=== PATIENT | male | born 1965 | race Caucasian/White ===

== ENCOUNTER 2024-04-16 16:32 | Inpatient (IN) ==
--- NOTE | 2024-04-16 17:11 | XRay Report ---
SINGLE VIEW CHEST CLINICAL HISTORY: Atypical chest pain. FINDINGS: A PA chest radiograph is obtained. No prior studies are available for comparison at the monae e of dictation. The heart is enlarged. There is pulmonary vascular congestion and mild interstitial e leslie. There are small pleural effusions. No pneumothorax is seen. The skeletal structures are osteope justina. The bony thorax is grossly intact. IMPRESSION: 1. Cardiomegaly with evidence of congestive failure and mild interstitial edema. Radiographic follow- up to resolution is recommended. 2. Small pleural effusions. ACT 112: Negative or not required by law. Electronically signed by: Ruddy Sharma M.D. 04/16/2024 5:10 PM
[2024-04-16 17:43] LABS: Basophils # (auto) 0.04 K/uL (0.00-0.20); Basophils % (auto) 0.4 %; Eosinophils # (auto) 0.21 K/uL (0.00-0.50); Eosinophils % (auto) 1.9 %; Hemoglobin 12.2 g/dl (14.0-18.0); Immature Granulocytes # (auto) 0.05 K/uL (0.01-0.20); Immature Granulocytes % (auto) 0.5 %; Lymphocytes # (auto) 1.51 K/uL (1.20-3.40); Mean Corpuscular Volume 85.1 fL (80.0-100.0); Mean Platelet Volume 9.9 fL (9.4-12.4); Monocytes # (auto) 0.64 K/uL (0.11-0.59); Monocytes % (auto) 5.9 %; Neutrophils # (auto) 8.35 K/uL (1.40-6.50); Neutrophils % (auto) 77.3 %; Platelet Count 342 K/uL (130-400); RDW Coefficient of Variation 14.3 % (11.5-14.5); RDW Standard Deviation 44.7 fL (36.4-46.3); Red Blood Count 4.35 M/uL (4.70-6.10)
[2024-04-16 18:00] LABS: Albumin Level 3.5 gm/dl (3.4-5.0); BUN Creatinine Ratio 23.5 (10-20); Bilirubin,Total 0.9 mg/dl (0.2-1.0); Calcium 9.1 mg/dl (8.6-10.3); Creatinine Clr Calc Pharmacy 125.6 ml/min; Est GFR (African American) 111.3 ml/min; Globulin 3.6 gm/dl (2.5-4.0); Potassium 4.2 mmol/L (3.5-5.1); Total Protein 7.1 gm/dl (6.0-8.3)
[2024-04-16 18:05] LABS: Troponin I High Sensitivity 5.9 pg/ml (0-20)
[2024-04-16 18:10] LABS: INR 1.2 (0.9-1.1); Partial Thromboplastin Ratio 1.1; Partial Thromboplastin Time 29 Seconds (21-31); Prothrombin Time 12.7 Seconds (9.0-12.0)
[2024-04-16 18:16] LABS: Influenza A virus by PCR Negative (Neg); Influenza B virus by PCR Negative (Neg); RSV by PCR Negative (Neg); SARS CoV2 RNA(COVID-19) Ceph NEGATIVE (Negative)
--- NOTE | 2024-04-16 18:41 | Emergency Department Note ---
Impression & Plan GROVE (dyspnea on exertion), Congestive heart failure, Dizziness, Acute Lyme disease ED Provider Note ED Provider Note NAME: MADISON CASTILLO AGE:58 SEX: Male : 1965 ARRIVES VIA: Private vehicle INFORMANT: Patient ED PROVIDER(s): Lashon Morgan DO CHIEF COMPLAINT: Referred from urgent care HPI: This is a 58-year-old male presents emergency department due to concern for increased dyspnea with exertion over the last 1-1/2 to 2 weeks. He states he is also noticed dizziness with exertion, and increased fatigue. Patient states no prior similar history. He denies any history of heart problems or lung problems. He denies any recent fevers, chills, or URI symptoms. He denies any coming chest pain or pressure. He states when his breathing gets worse with any movement or exertion he is to sit down for a while before it eventually returns to normal. He states he presented to urgent care today and had a chest x-ray performed and they told him he had congestive heart failure and that he needed to come to the emergency department. Patient states no prior cardiac evaluation. He states family members have had cardiac issues beginning in their 50s additionally. No recent travel. Patient states his mother recently the end of January. states he is also a diabetic however his diet has not been good since the passing of his mother. PAST MEDICAL HISTORY:See Below PAST SURGICAL HISTORY:See Below FAMILY HISTORY:See Below SOCIAL HISTORY:See Below HOME MEDICATIONS:See Below ALLERGIES:See Below VITALS:See Below PHYSICAL EXAMINATION: GENERAL: alert, well appearing, well nourished, no distress, non-toxic EYE EXAM: normal conjunctiva, PERRL and EOM's grossly intact OROPHARYNX: no exudate, no erythema, lips, buccal mucosa, and tongue normal and mucous membranes are moist NECK: supple, no nuchal rigidity, no adenopathy, non-tender LUNGS: Clear to auscultation. Normal chest wall mechanics, no w/r/r HEART: no murmurs, S1 normal and S2 normal ABDOMEN: abdomen soft, non-tender, normo-active bowel sounds, no masses, no rebound or guarding. BACK: Back is symmetrical on inspection and there is no deformity, no midline tenderness, no CVA tenderness. SKIN: no rashes, petechiae, orbruising UPPER EXTREMITIES: upper extremities are grossly normal. FROM, nml pulses b/l. LOWER EXTREMITIES: No pitting edema. FROM, nml pulses b/l. NEURO EXAM: Normal sensorium, cranial nerves II-XII grossly intact, normal speech, no facial droop,nogross weakness of arms, no gross weakness of legs. Gross sensation intact. No ataxia. Vital Signs: reviewed and remarkable Differential Diagnosis: pneumonia, bronchitis, COPD/Asthma exacerbation, pneumothorax, pulmonary embolism, congestive heart failure, acute coronary syndrome, as well as others were considered MEDICAL DECISION MAKING: This is a 50-year-old male presents emergency room due to concern for increased dyspnea with exertion over the last 2 weeks. Patient initially seen at urgent care and sent here for additional evaluation due to concern for abnormal chest x-ray and possible CHF. Patient with no prior cardiac history. He was afebrile vital signs stable. Labs drawn and sent, IV established, EKG and chest ray performed at bedside and interpreted by me and patient monitored on telemetry. Patient noted to have a negative troponin however an elevated BNP. Given his recent dyspnea on exertion, chest x-ray suggestive of evolving CHF, and elevated BNP, I discussed with him additional inpatient evaluation and management. He verbalized understanding. Patient given Lasix 20 mg IV in the emergency department to help again diuresis. He had no increased work of breathing or hypoxia while resting in bed. Case discussed with the hospitalist team for additional evaluation and management. After this discussion patient's Lyme test did result positive. Patient was given a gram of IV Rocephin as a precaution while awaiting additional IgG/IgM. It is unclear at this time if an acute Lyme infection could be contributing to his symptoms and CHF. Consultation(s): 1919: Discussed with Dr. Oakes, [facility] hospitalist team, for additional evaluation and management ER Treatment Provided: See below Diagnostics Interpreted By Me: -ECG: Normal sinus at 69, normal axis, normal intervals, no acute ST/T wave changes. -Cardiac Monitoring: An order was placed for continuous cardiac monitoring. The monitor shows a rate of 72 with normal sinus rhythm. -Laboratory studies: As stated above and show below. -Imaging studies: X-ray Chest: A single view study of the chest was reviewed and was negative for focal infiltrate, effusion, or wide mediastinum. Cardiomegaly noted, increased interstitial markings suggestive of pulmonary edema also noted. Triage Nursing Note Reviewed Prior/Outside Records Reviewed Past Med/Surg History Problem List (Updated 04/17/24 @ 20:29 by Lashon Morgan DO) Acute Lyme disease (Acute) Acute heart failure with preserved ejection fraction LVH (left ventricular hypertrophy) Hypertension Acute on chronic diastolic CHF (congestive heart failure) Dizziness (Acute) Congestive heart failure (Acute) GROVE (dyspnea on exertion) (Acute) Medical History (Updated 04/17/24 @ 20:29 by Lashon Morgan DO) GERD (gastroesophageal reflux disease) Hyperlipidemia Surgical History No significant past surgical history Social History (Updated 04/13/19 @ 20:25 by Ramon Goel) Smoking Status: Never smoker Hx Alcohol Use: No Hx Substance Use: No Preferred Language: Malaysian Communication Ability: Effective Caregivers Non Medical Required: No Beliefs That Will Affect Care: None marital status: Current Living Situation: Alone current occupational status: employed Feels Safe at Home: Yes Safety Concerns: Feels Safe At This Time Assistive Devices: None Allergies Allergies Allergy/AdvReac Type Severity Reaction Status Date / Time morphine AdvReac Mild ITCHY NOSE Verified 04/16/24 20:05 Home Meds Home Medications Medication Instructions Recorded Confirmed cholecalciferol (vitamin D3) 25 25 mcg PO QAM 04/16/24 04/16/24 mcg (1,000 unit) tablet (Vitamin D3) furosemide 20 mg tablet 20 mg PO QAM 04/16/24 04/16/24 glucosamine-chondroitin 500 mg-400 1 tab PO QAM 04/16/24 04/16/24 mg tablet lisinopril 10 mg tablet 10 mg PO QAM 04/16/24 04/16/24 zwzsaahy-vo-gwzca 300 mcg-K 60 1 tab PO QAM 04/16/24 04/16/24 mcg-lycop 600 mcg-lutein 300 mcg tablet (Centrum Silver Ultra Men's) omeprazole 20 mg capsule,delayed 20 mg PO QAM 04/16/24 04/16/24 release potassium chloride 10 mEq 10 meq PO QAM 04/16/24 04/16/24 capsule,extended release semaglutide 0.25 mg or 0.5 mg (2 0.5 mg subcut WK 04/16/24 04/16/24 mg/3 mL) subcutaneous pen injector (Ozempic) sildenafil 100 mg tablet 100 mg PO UD PRN Erectile 04/16/24 04/16/24 Dysfunction simvastatin 10 mg tablet 10 mg PO QAM 04/16/24 04/16/24 vit C 30 mg-s.resendiz 250 mg-celery 1 cap PO QAM 04/16/24 04/16/24 seed 75 mg-grape seed extrt capsule (Tart Resendiz) Results & Data (ED) Vital Signs Vital Signs - 24 hr 04/16/24 16:44 04/16/24 17:46 04/16/24 17:46 Temperature 36.7 C Temperature Source Temporal Artery Scan Pulse Rate 68 69 Respiratory Rate 19 Respiratory Effort / Characteristics Non-Labored Spontaneous Respiratory Depth Normal Blood Pressure 127/70 Blood Pressure Mean 89 Pulse Oximetry 96 Oxygen Delivery Method Room Air Room Air Sepsis Recent Fever Within 48 Hours Yes Sepsis New/Unexplained Change in Mental Status No Sepsis Action Taken by Nursing No Action Required Laboratory Data 04/17/24 06:07 04/17/24 06:07 Lab Results 04/16/24 04/16/24 04/16/24 Range/Units 17:25 17:28 17:39 WBC 10.80 (4.8-10.8) K/ul RBC 4.35 L (4.70-6.10) M/uL Hgb 12.2 L (14.0-18.0) g/dl Hct 37.0 L (42.0-52.0) % MCV 85.1 (80.0-100.0) fL MCH 28.0 (25.0-34.0) pg MCHC 33.0 (32.0-36.0) g/dL RDW Std Deviation 44.7 (36.4-46.3) fL RDW Coeff of Luis Daniel 14.3 (11.5-14.5) % Plt Count 342 (130-400) K/uL MPV 9.9 (9.4-12.4) fL Immature Gran % (Auto) 0.5 % Neut % (Auto) 77.3 % Lymph % (Auto) 14.0 % [place] % (Auto) 5.9 % Eos % (Auto) 1.9 % Baso % (Auto) 0.4 % Neut # (Auto) 8.35 H (1.40-6.50) K/uL Lymph # (Auto) 1.51 (1.20-3.40) K/uL [place] # (Auto) 0.64 H (0.11-0.59) K/uL Eos # (Auto) 0.21 (0.00-0.50) K/uL Baso # (Auto) 0.04 (0.00-0.20) K/uL Immature Gran # (Auto) 0.05 (0.01-0.20) K/uL PT 12.7 H (9.0-12.0) Seconds INR 1.2 H (0.9-1.1) APTT 29 (21-31) Seconds PTT Ratio 1.1 Sodium 136 (136-145) mmol/L Potassium 4.2 (3.5-5.1) mmol/L Chloride 105 (98-107) mmol/L Carbon Dioxide 24 (21-32) mmol/L Anion Gap 7 (3-11) BUN 20 (6-23) mg/dl Creatinine 0.85 (0.6-1.4) mg/dl Est Cr Clr Drug Dosing 125.6 ml/min Est GFR ( Amer) 111.3 ml/min Est GFR (Non-Af Amer) 96.0 ml/min BUN/Creatinine Ratio 23.5 H (10-20) Glucose 119 H (70-99(Fasting)) mg/dl Estimat Average Glucose mg/dl Hemoglobin A1c (4.5-5.6) % Calcium 9.1 (8.6-10.3) mg/dl Magnesium 2.2 (1.7-2.4) mg/dl Total Bilirubin 0.9 (0.2-1.0) mg/dl AST 33 (13-39) U/L ALT 99 H (7-52) U/L Alkaline Phosphatase 214 H (34-104) U/L Troponin I High Sens 5.9 (0-20) pg/ml B-Natriuretic Peptide 337 H (0-100) pg/ml Total Protein 7.1 (6.0-8.3) gm/dl Albumin 3.5 (3.4-5.0) gm/dl Globulin 3.6 (2.5-4.0) gm/dl Albumin/Globulin Ratio 1.0 (0.9-2) TSH 1.351 (0.300-4.500) uIu/ml Urine Color Dark Yellow Urine Appearance Clear (Clear) Urine pH 5.5 (4.5-7.5) Ur Specific [place] 1.030 (1.000-1.030) Urine Protein 1+ H (Negative) Urine Glucose (UA) Negative (Negative) Urine Ketones Trace H (Negative) Urine Blood Negative (Negative) Urine Nitrite Negative (Negative) Urine Bilirubin 1+ H (Negative) Urine Urobilinogen Positive H (Negative) Ur Leukocyte Esterase Negative (Negative) Urine WBC (Auto) 0-5 (0-5) /hpf Urine RBC (Auto) 0-2 (0-2) /hpf U Hyaline Cast (Auto) 0-2 (0-2) /lpf U Epithel Cells (Auto) 0-2 (0-2) /hpf Urine Bacteria (Auto) None Seen (None Seen) Anaplasma Smear See Comment Babesia Smear See Comment Lyme Disease Screen Positive H (Negative) Lyme Tier 2 IgG Confirm Positive H (Negative) Lyme Tier 2 IgM Confirm Positive H (Negative) SARS-CoV-2 (PCR) NEGATIVE (Negative) Influenza Type A (PCR) Negative (Neg) Influenza Type B (PCR) Negative (Neg) RSV (RT-PCR) Negative (Neg) 04/16/24 Range/Units 20:28 WBC (4.8-10.8) K/ul RBC (4.70-6.10) M/uL Hgb (14.0-18.0) g/dl Hct (42.0-52.0) % MCV (80.0-100.0) fL MCH (25.0-34.0) pg MCHC (32.0-36.0) g/dL RDW Std Deviation (36.4-46.3) fL RDW Coeff of Luis Daniel (11.5-14.5) % Plt Count (130-400) K/uL MPV (9.4-12.4) fL Immature Gran % (Auto) % Neut % (Auto) % Lymph % (Auto) % [place] % (Auto) % Eos % (Auto) % Baso % (Auto) % Neut # (Auto) (1.40-6.50) K/uL Lymph # (Auto) (1.20-3.40) K/uL [place] # (Auto) (0.11-0.59) K/uL Eos # (Auto) (0.00-0.50) K/uL Baso # (Auto) (0.00-0.20) K/uL Immature Gran # (Auto) (0.01-0.20) K/uL PT (9.0-12.0) Seconds INR (0.9-1.1) APTT (21-31) Seconds PTT Ratio Sodium (136-145) mmol/L Potassium (3.5-5.1) mmol/L Chloride (98-107) mmol/L Carbon Dioxide (21-32) mmol/L Anion Gap (3-11) BUN (6-23) mg/dl Creatinine (0.6-1.4) mg/dl Est Cr Clr Drug Dosing ml/min Est GFR ( Amer) ml/min Est GFR (Non-Af Amer) ml/min BUN/Creatinine Ratio (10-20) Glucose (70-99(Fasting)) mg/dl Estimat Average Glucose 157 mg/dl Hemoglobin A1c 7.1 H (4.5-5.6) % Calcium (8.6-10.3) mg/dl Magnesium (1.7-2.4) mg/dl Total Bilirubin (0.2-1.0) mg/dl AST (13-39) U/L ALT (7-52) U/L Alkaline Phosphatase (34-104) U/L Troponin I High Sens (0-20) pg/ml B-Natriuretic Peptide (0-100) pg/ml Total Protein (6.0-8.3) gm/dl Albumin (3.4-5.0) gm/dl Globulin (2.5-4.0) gm/dl Albumin/Globulin Ratio (0.9-2) TSH (0.300-4.500) uIu/ml Urine Color Urine Appearance (Clear) Urine pH (4.5-7.5) Ur Specific [place] (1.000-1.030) Urine Protein (Negative) Urine Glucose (UA) (Negative) Urine Ketones (Negative) Urine Blood (Negative) Urine Nitrite (Negative) Urine Bilirubin (Negative) Urine Urobilinogen (Negative) Ur Leukocyte Esterase (Negative) Urine WBC (Auto) (0-5) /hpf Urine RBC (Auto) (0-2) /hpf U Hyaline Cast (Auto) (0-2) /lpf U Epithel Cells (Auto) (0-2) /hpf Urine Bacteria (Auto) (None Seen) Anaplasma Smear Babesia Smear Lyme Disease Screen (Negative) Lyme Tier 2 IgG Confirm (Negative) Lyme Tier 2 IgM Confirm (Negative) SARS-CoV-2 (PCR) (Negative) Influenza Type A (PCR) (Neg) Influenza Type B (PCR) (Neg) RSV (RT-PCR) (Neg) Administered Medications Doxycycline Hyclate (Doxycycline Hyclate 100 Mg Cap) 100 mg PO BID FARHAN Stop: 04/27/24 08:59 Last Admin: 04/17/24 20:31 Dose: 100 mg Documented By: Admin: 04/17/24 08:36 Dose: 100 mg Documented By: CARLA Enoxaparin Sodium (Enoxaparin Inj 40 Mg/0.4 Ml Syr) 40 mg SQ QAM [facility] Stop: 05/17/24 17:29 Last Admin: 04/17/24 17:44 Dose: 40 mg Documented By: CARLA Furosemide (Furosemide 40 Mg/4 Ml Vial) 40 mg IV DAILY FARHAN Stop: 05/17/24 08:59 Last Admin: 04/17/24 09:03 Dose: Not Given Documented By: CARLA Insulin Aspart (Insulin Aspart Per Unit Charge) 0 units SC ACHS FARHAN Stop: 05/16/24 22:50 Last Admin: 04/17/24 17:04 Dose: 3 units Documented By: CARLA Co-signed By: LOLLY Admin: 04/17/24 12:16 Dose: 6 units Documented By: CARLA Co-signed By: LOLLY Admin: 04/17/24 08:17 Dose: 5 units Documented By: CARLA Co-signed By: IGNACIA Admin: 04/16/24 23:12 Dose: Not Given Documented By: CAROLYN Insulin Glargine (Lantus Per Unit Charge) 5 units SQ DAILY FARHAN Stop: 05/17/24 08:59 Last Admin: 04/17/24 08:56 Dose: 5 units Documented By: CARLA Co-signed By: KORIN Lisinopril (Lisinopril 10 Mg Tab) 10 mg PO QAM [facility] Stop: 05/17/24 08:59 Last Admin: 04/17/24 08:36 Dose: 10 mg Documented By: CARLA Metoprolol Tartrate (Metoprolol Tartrate 25 Mg Tab) 12.5 mg PO BID [facility] Stop: 05/16/24 20:59 Last Admin: 04/17/24 20:32 Dose: 12.5 mg Documented By: Admin: 04/17/24 08:37 Dose: 12.5 mg Documented By: Admin: 04/16/24 23:40 Dose: 12.5 mg Documented By: CAROLYN Multivitamins/Minerals (Cerovite Adv Formula Tab) 1 tab PO [facility] Stop: 05/17/24 08:59 Last Admin: 04/17/24 08:39 Dose: 1 tab Documented By: CARLA Pantoprazole Sodium (Pantoprazole 40 Mg Tab) 40 mg PO [facility] Stop: 05/17/24 08:59 Last Admin: 04/17/24 08:39 Dose: 40 mg Documented By: CARLA Potassium Chloride (Potassium Chloride Crtab 20 Meq Tabcr) 20 meq PO [facility] Stop: 05/17/24 08:59 Last Admin: 04/17/24 08:39 Dose: 20 meq Documented By: CARLA Simvastatin (Simvastatin 10 Mg Tab) 10 mg PO [facility] Stop: 05/17/24 08:59 Last Admin: 04/17/24 08:39 Dose: 10 mg Documented By: CARLA Discontinued Medications Albuterol (Albut/Ipratrop 3mg/0.5mg Neb 3 Ml Vial) 3 ml NEB NOW [facility]; Protocol Stop: 04/16/24 20:54 Last Admin: 04/16/24 22:09 Dose: 3 ml Documented By: DARREL Cyclobenzaprine HCl (Cyclobenzaprine Hcl 10 Mg Tab) 10 mg PO NOW [facility] Stop: 04/17/24 08:53 Last Admin: 04/17/24 09:57 Dose: 10 mg Documented By: IGNACIA Furosemide (Furosemide Inj 20 Mg/2 Ml Vial) 20 mg IV ONE ONE Stop: 04/16/24 19:01 Last Admin: 04/16/24 19:34 Dose: 20 mg Documented By: DARREL Furosemide (Furosemide 40 Mg/4 Ml Vial) 40 mg IV 0800 ONE Stop: 04/17/24 08:01 Last Admin: 04/17/24 08:40 Dose: 40 mg Documented By: CARLA Ceftriaxone Sodium (Rocephin) 2,000 mg in 50 mls @ 100 mls/hr IV NOW [facility] Stop: 04/16/24 20:41 Last Infusion: 04/16/24 22:04 Dose: Infused Documented By: Admin: 04/16/24 21:32 Dose: 100 mls/hr Documented By: DARREL Lidocaine (Lidocaine 5% 1 Patch) 1 patch TD NOW [facility] Stop: 04/17/24 08:52 Last Admin: 04/17/24 09:57 Dose: 1 patch Documented By: CRW Imaging Data Radiologist's Impression: Chest X-Ray 04/16/24 16:49 SINGLE VIEW CHEST CLINICAL HISTORY: Atypical chest pain. FINDINGS: A PA chest radiograph is obtained. No prior studies are available for comparison at the time of dictation. The heart is enlarged. There is pulmonary vascular congestion and mild interstitial edema. There are small pleural effusions. No pneumothorax is seen. The skeletal structures are osteopenic. The bony thorax is grossly intact. IMPRESSION: 1. Cardiomegaly with evidence of congestive failure and mild interstitial edema. Radiographic follow-up to resolution is recommended. 2. Small pleural effusions. ACT 112: Negative or not required by law. Electronically signed by: Ruddy Sharma M.D. 04/16/2024 5:10 PM Discharge Plan Visit Data Chief Complaint: Shortness of Breath/Dyspnea Stated Complaint: CONGESTED HEART FAILURE ED Provider: Lashon Morgan Discharge Problem: GROVE (dyspnea on exertion), Congestive heart failure, Dizziness, Acute Lyme disease Patient Disposition: Admitted As Inpatient Discharge Instructions Interventions: ED Discharge Assessment Last Done: 04/16/24 22:33
--- NOTE | 2024-04-16 19:15 | History & Physical Report ---
Date of Service April 16, 2024 History of Present Illness Chief Complaint: SOB/dyspnea Primary Care Provider: Jeffy Perez PA-C Germán is a 58-year-old male with PMH of diabetes. Presented for weakness, SOB, dizziness, and back pain x 1 week. Patient's mother recently in January, and he reports his diet has not been good since. Multiple family members with cardiac history in their 50s. Patient's vitals are stable at time of admission. ED course: Lasix 20 mg IV ROS: Patient endorses Patient denies Allergies Allergy/AdvReac Type Severity Reaction Status Date / Time morphine AdvReac Mild ITCHY NOSE Verified 03/13/13 11:59 Home Medications Medication Instructions Recorded Confirmed Type ASPIRIN 3 tabs PO DAILY PRN ##0 03/09/13 History CYCLOBENZAPRINE HCL (FLEXERIL) 10 mg PO BID #0 tabs 03/09/13 History LISINOPRIL 2.5 mg PO QPM #0 tabs 03/09/13 History OMEPRAZOLE (PRILOSEC) 20 mg PO QPM #0 caps 03/09/13 History OXYCODONE/ACETAMINOPHEN 10MG/325MG 1 tab PO Q6HRS PRN #0 tabs 03/09/13 History (PERCOCET 10MG/325MG) Simvastatin (Zocor) 10 mg PO QPM #0 tabs 03/09/13 History Past Med/Surg History Problem List (Updated 04/16/24 @ 18:41 by Lashon Morgan DO) Dizziness (Acute) Congestive heart failure (Acute) GROVE (dyspnea on exertion) (Acute) Medical History (Updated 04/16/24 @ 18:41 by Lashon Morgan DO) GERD (gastroesophageal reflux disease) Hyperlipidemia Hypertension Surgical History No significant past surgical history Social History (Updated 04/13/19 @ 20:25 by Ramon Goel) Smoking Status: Never smoker Preferred Language: Danish marital status: Current Living Situation: Family current occupational status: employed Feels Safe at Home: Yes Review of Systems Review of Systems: See HPI above Physical Exam Physical Exam: General: no acute distress; non-toxic appearing; well-nourished; cooperative HEENT: normocephalic, atraumatic; no scleral icterus; PERRLA w/ EOMs intact; moist mucus membrane; vision and hearing grossly intact Neck: supple; no lymphadenopathy; trachea midline Skin: warm, dry without signs of tenting; no cyanosis; no rashes, bruising, lesions, or erythema noted CV: chest wall NTP; RRR; S1/S2 normal; no murmurs/rubs/gallops; pulses intact and symmetric at radial, DP, and PT Lungs: no acute respiratory distress; symmetrical chest wall expansion; clear breath sounds across all lung deleon w/o adventitious sounds; no wheezing ABD: Soft, NTP; BS present; no rebound/guarding; no distention MSK: no tics or fasciculations; no edema noted in the LEs b/l, nonerythematous Neuro: A&Ox3; normal mood and affect; fluent speech; no focal deficits; sensation grossly intact in the LEs b/l Results & Data Results & Data Vital Signs (Past 12 Hours) Vital Signs Temp Pulse Resp BP Pulse Ox O2 Del Method 04/16/24 17:46 69 04/16/24 17:46 Room Air 04/16/24 16:44 36.7 C 68 19 127/70 96 Room Air PG Care Time/CCT Total # of Minutes Spent Total Time Spent with Patient: Total time spent is greater than 50% in coordination of care (as documented) at patient's floor/unit and/or counseling patient: Coding
[2024-04-16] MEDS: FUROSEMIDE INJ 20 MG/2 ML VIAL IV ONE (19:34)
[2024-04-16 20:06] LABS: Lyme Screen Rflx Confirmation Positive (Negative)
[2024-04-16 20:12] LABS: Magnesium 2.2 mg/dl (1.7-2.4)
[2024-04-16 20:27] LABS: Thyroid Stimulating Hormone 1.351 uIu/ml (0.300-4.500)
[2024-04-16 20:39] LABS: Lyme Ab IgG 2nd Tier Confirm Positive (Negative)
[2024-04-16 20:40] LABS: Lyme Ab IgM 2nd Tier Confirm Positive (Negative)
--- NOTE | 2024-04-16 20:54 | History & Physical Report ---
Date of Service April 16, 2024 Assessment & Plan (1) Congestive heart failure: Plan: Possible causes Lyme carditis Undiagnosed YUE hypertension, slightly elevated hyperlipidemia, on statin Rx DM2 on Ozempic, unknown baseline control New onset anemia ? Possibly dilutional from fluid retention, FOBT done at the ER was negative Back pain of 2 weeks in duration without recollection of trauma, etiology to be determined PCU Diuretic Rx Strict I/Os, daily weights, CHF education Initiate low-dose beta-gene Doxycycline for Lyme carditis TTE, Cardiology consult Re: CHF (Patient family requesting for Dr. Greenfield.) Basal bolus insulin, ISS BG goal 1 10-1 40, carb count coverage, update hemoglobin A1c CT abdomen pelvis Re: Back pain Anemia workup DVT prophylaxis per Lovenox subcu Full code Patient partner requesting updates providers. Scout Ivan Chase, contact #[phone]. Text document was generated using PlanStan voice recognition software. It may contain grammatical or spelling errors. Kindly contact undersigned for clarification of any documentation item in question. History of Present Illness Chief Complaint: Shortness of breath Primary Care Provider: Jeffy Perez PA-C History obtained from patient, family, and records. Medical history significant for hypertension, hyperlipidemia, DM2 on Ozempic, GERD. 1 week history of shortness of breath mostly on exertion associated with dizziness described as lightheadedness and fatigue. No chest pain. No fluid retention or leg swelling. No recollection of recent tick bites although possible exposure to ticks. Denies abdominal pain, black, bloody stools. Achy back pain 2 weeks ago without recollection of recent trauma. Discomfort relieved by NSAID intake at home. Possible sleep apnea as per patient. Has not gone for sleep studies in the past. Does not think he will be comfortable wearing mask. Patient consulted ER for worsening symptoms. IV Lasix administered at the ER. 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 Allergies Allergy/AdvReac Type Severity Reaction Status Date / Time morphine AdvReac Mild ITCHY NOSE Verified 04/16/24 20:05 Home Medications Medication Instructions Recorded Confirmed Type cholecalciferol (vitamin D3) 25 25 mcg PO QAM 04/16/24 04/16/24 History mcg (1,000 unit) tablet (Vitamin D3) furosemide 20 mg tablet 20 mg PO QAM 04/16/24 04/16/24 History glucosamine-chondroitin 500 mg-400 1 tab PO QAM 04/16/24 04/16/24 History mg tablet lisinopril 10 mg tablet 10 mg PO QAM 04/16/24 04/16/24 History ssuakoby-ia-gychg 300 mcg-K 60 1 tab PO QAM 04/16/24 04/16/24 History mcg-lycop 600 mcg-lutein 300 mcg tablet (Centrum Silver Ultra Men's) omeprazole 20 mg capsule,delayed 20 mg PO QAM 04/16/24 04/16/24 History release potassium chloride 10 mEq 10 meq PO QAM 04/16/24 04/16/24 History capsule,extended release semaglutide 0.25 mg or 0.5 mg (2 0.5 mg subcut WK 04/16/24 04/16/24 History mg/3 mL) subcutaneous pen injector (Ozempic) sildenafil 100 mg tablet 100 mg PO UD PRN Erectile 04/16/24 04/16/24 History Dysfunction simvastatin 10 mg tablet 10 mg PO QAM 04/16/24 04/16/24 History vit C 30 mg-s.resendiz 250 mg-celery 1 cap PO QAM 04/16/24 04/16/24 History seed 75 mg-grape seed extrt capsule (Tart Resendiz) Past Med/Surg History Problem List (Updated 04/16/24 @ 18:41 by Lashon Morgan DO) Dizziness (Acute) Congestive heart failure (Acute) GROVE (dyspnea on exertion) (Acute) Medical History (Updated 04/16/24 @ 18:41 by Lashon Morgan DO) GERD (gastroesophageal reflux disease) Hyperlipidemia Hypertension Surgical History No significant past surgical history Social History (Updated 04/13/19 @ 20:25 by Ramon Goel) Smoking Status: Never smoker Hx Alcohol Use: No Hx Substance Use: No Preferred Language: Occitan Communication Ability: Effective Combatant Diver Qualified Required: No Beliefs That Will Affect Care: None marital status: Current Living Situation: Alone current occupational status: employed Feels Safe at Home: Yes Safety Concerns: Feels Safe At This Time Assistive Devices: Glasses Review of Systems Review of Systems: As per HPI, all other systems reviewed and negative Physical Exam Physical Exam: GENERAL: Comfortable, pleasant, morbidly obese, no respiratory distress SKIN: Pallor, warm HEENT: Pale palpebral conjunctivae, no ptosis, dry buccal mucosa NECK : Supple, short neck, no tenderness CHEST : Decreased breath sounds, no tenderness HEART : RRR, systolic murmur ABDOMEN: Some distention, nontender RECTAL : Intact sphincter, brown stool (FOBT negative) EXTREMITIES : Minimal LE swelling, no LE tenderness, no other conspicuous deformities noted NEUROLOGIC : Coherent, no facial asymmetry, no other gross focality Results & Data Results & Data Vital Signs (Past 12 Hours) Vital Signs Temp Pulse Pulse Resp BP BP Pulse Ox 04/16/24 19:00 66 20 110/71 94 04/16/24 17:46 69 04/16/24 17:46 04/16/24 16:44 36.7 C 68 19 127/70 96 O2 Del Method 04/16/24 19:00 Room Air 04/16/24 17:46 04/16/24 17:46 Room Air 04/16/24 16:44 Room Air Laboratory Results Laboratory Results WBC 10.80 K/ul (4.8-10.8) 04/16/24 17:25 RBC 4.35 M/uL (4.70-6.10) L 04/16/24 17:25 Hgb 12.2 g/dl (14.0-18.0) L 04/16/24 17:25 Hct 37.0 % (42.0-52.0) L 04/16/24 17:25 MCV 85.1 fL (80.0-100.0) 04/16/24 17:25 MCH 28.0 pg (25.0-34.0) 04/16/24 17:25 MCHC 33.0 g/dL (32.0-36.0) 04/16/24 17:25 RDW Std Deviation 44.7 fL (36.4-46.3) 04/16/24 17:25 RDW Coeff of Luis Daniel 14.3 % (11.5-14.5) 04/16/24 17: Plt Count 342 K/uL (130-400) 04/16/24 17:25 MPV 9.9 fL (9.4-12.4) 04/16/24 17:25 Immature Gran % (Auto) 0.5 % 04/16/24 17:25 Neut % (Auto) 77.3 % 04/16/24 17:25 Lymph % (Auto) 14.0 % 04/16/24 17:25 Burt % (Auto) 5.9 % 04/16/24 17:25 Eos % (Auto) 1.9 % 04/16/24 17:25 Baso % (Auto) 0.4 % 04/16/24 17:25 Neut # (Auto) 8.35 K/uL (1.40-6.50) H 04/16/24 17:25 Lymph # (Auto) 1.51 K/uL (1.20-3.40) 04/16/24 17:25 Burt # (Auto) 0.64 K/uL (0.11-0.59) H 04/16/24 17:25 Eos # (Auto) 0.21 K/uL (0.00-0.50) 04/16/24 17:25 Baso # (Auto) 0.04 K/uL (0.00-0.20) 04/16/24 17:25 Immature Gran # (Auto) 0.05 K/uL (0.01-0.20) 04/16/24 17:25 PT 12.7 Seconds (9.0-12.0) H 04/16/24 17:25 INR 1.2 (0.9-1.1) H 04/16/24 17:25 APTT 29 Seconds (21-31) 04/16/24 17:25 PTT Ratio 1.1 04/16/24 17:25 Sodium 136 mmol/L (136-145) 04/16/24 17:25 Potassium 4.2 mmol/L (3.5-5.1) 04/16/24 17:25 Chloride 105 mmol/L (98-107) 04/16/24 17:25 Carbon Dioxide 24 mmol/L (21-32) 04/16/24 17:25 Anion Gap 7 (3-11) 04/16/24 17:25 BUN 20 mg/dl (6-23) 04/16/24 17:25 Creatinine 0.85 mg/dl (0.6-1.4) 04/16/24 17:25 Est Cr Clr Drug Dosing 125.6 ml/min 04/16/24 17:25 Est GFR ( Amer) 111.3 ml/min 04/16/24 17:25 Est GFR (Non-Af Amer) 96.0 ml/min 04/16/24 17:25 BUN/Creatinine Ratio 23.5 (10-20) H 04/16/24 17:25 Glucose 119 mg/dl (70-99(Fasting)) H 04/16/24 17:25 Calcium 9.1 mg/dl (8.6-10.3) 04/16/24 17:25 Magnesium 2.2 mg/dl (1.7-2.4) 04/16/24 17:25 Total Bilirubin 0.9 mg/dl (0.2-1.0) 04/16/24 17:25 AST 33 U/L (13-39) 04/16/24 17:25 ALT 99 U/L (7-52) H 04/16/24 17:25 Alkaline Phosphatase 214 U/L (34-104) H 04/16/24 17:25 Troponin I High Sens 5.9 pg/ml (0-20) 04/16/24 17:25 B-Natriuretic Peptide 337 pg/ml (0-100) H 04/16/24 17:25 Total Protein 7.1 gm/dl (6.0-8.3) 04/16/24 17:25 Albumin 3.5 gm/dl (3.4-5.0) 04/16/24 17:25 Globulin 3.6 gm/dl (2.5-4.0) 04/16/24 17:25 Albumin/Globulin Ratio 1.0 (0.9-2) 04/16/24 17:25 TSH 1.351 uIu/ml (0.300-4.500) 04/16/24 17:25 Anaplasma Smear See Comment 04/16/24 17:25 Babesia Smear See Comment 04/16/24 17:25 Lyme Disease Screen Positive (Negative) H 04/16/24 17:28 Lyme Tier 2 IgG Confirm Positive (Negative) H 04/16/24 17:28 Lyme Tier 2 IgM Confirm Positive (Negative) H 04/16/24 17:28 SARS-CoV-2 (PCR) NEGATIVE (Negative) 04/16/24 17:28 Influenza Type A (PCR) Negative (Neg) 04/16/24 17:28 Influenza Type B (PCR) Negative (Neg) 04/16/24 17:28 RSV (RT-PCR) Negative (Neg) 04/16/24 17:28 Impressions Chest X-Ray 04/16/24 16:49 SINGLE VIEW CHEST CLINICAL HISTORY: Atypical chest pain. FINDINGS: A PA chest radiograph is obtained. No prior studies are available for comparison at the time of dictation. The heart is enlarged. There is pulmonary vascular congestion and mild interstitial edema. There are small pleural effusions. No pneumothorax is seen. The skeletal structures are osteopenic. The bony thorax is grossly intact. IMPRESSION: 1. Cardiomegaly with evidence of congestive failure and mild interstitial edema. Radiographic follow-up to resolution is recommended. 2. Small pleural effusions. ACT 112: Negative or not required by law. Electronically signed by: Ruddy Sharma M.D. 04/16/2024 5:10 PM Diagnostic Findings EKG as per my interpretation : Rate 70, NSR, normal axis, T wave flattening septal leads
[2024-04-16] MEDS ORDERED: PROMETHAZINE HCL 12.5 MG in SODIUM CHLORIDE 0.9% 50 ML IV PRN (20:58)
[2024-04-16] MEDS ORDERED: ACETAMINOPHEN 325 MG TAB PO PRN (20:58)
[2024-04-16 21:19] LABS: Estimated Average Glucose 157 mg/dl; Hemoglobin A1C 7.1 % (4.5-5.6)
[2024-04-16] MEDS: cefTRIAXone SODIUM 2,000 MG/50 ML BAG IV STA (21:32)
[2024-04-16] MEDS: ALBUT/IPRATROP 3MG/0.5MG NEB 3 ML VIAL NEB STA (22:09)
[2024-04-16] MEDS ORDERED: GLUCOSE 40% GEL 15 GM TUBE PO PRN (22:51)
[2024-04-16] MEDS ORDERED: GLUCAGON FOR INJ 1 MG VIAL SQ PRN (22:51)
[2024-04-16] MEDS ORDERED: DEXTROSE 50% 50 ML SYRINGE IV PRN (22:51)
[2024-04-16] MEDS ORDERED: CARBOHYDRATES FOR HYPOGLYCEMIA PO PRN (22:51)
[2024-04-16] MEDS ORDERED: GLUCOSE 10 TAB/TUBE PO PRN (22:51)
[2024-04-16 22:52] LABS: Appearance Urine Clear (Clear); Bacteria Urine Automated None Seen (None Seen); Bilirubin Urine 1+ (Negative); Blood Urine Negative (Negative); Cast Urine Automated 0-2 /lpf (0-2); Color Urine Dark Yellow; Epithelial Cell Urine Auto 0-2 /hpf (0-2); Glucose Urine UA Negative (Negative); Ketones Urine Trace (Negative); Leukocyte Esterase Urine Negative (Negative); Nitrite Urine Negative (Negative); Protein Urine 1+ (Negative); RBC Urine Automated 0-2 /hpf (0-2); Urobilinogen Urine Positive (Negative); WBC Urine Automated 0-5 /hpf (0-5); pH Urine 5.5 (4.5-7.5)
[2024-04-16] MEDS: INSULIN ASPART PER UNIT CHARGE SC SCH (23:12)
[2024-04-16] MEDS: METOPROLOL TARTRATE 25 MG TAB PO SCH (23:40)
--- NOTE | 2024-04-17 00:40 | CT Scan Report ---
Exam(s): CT ABDOMEN + PELVIS Without Contrast EXAM: CT Abdomen and Pelvis Without Intravenous Contrast CLINICAL HISTORY: Reason for exam: back pain, anemia. TECHNIQUE: Axial computed tomography images of the abdomen and pelvis without intravenous contrast. CTDI is 28.14 mGy and DLP is 1401.32 mGy-cm. Automated exposure control was utilized for the study. A dose lowering technique was utilized adhering to the principles of ALARA. COMPARISON: No relevant prior studies available. FINDINGS: Lung bases: Small bilateral pleural effusions with associated compressive atelectasis. ABDOMEN: Liver: Enlarged 20.8 cm length. Gallbladder and bile ducts: Post cholecystectomy. No ductal dilation. Pancreas: Unremarkable. No ductal dilation. Spleen: Unremarkable. No splenomegaly. Adrenals: Unremarkable. No mass. Kidneys and ureters: No obstructive uropathy. No obstructing renal or ureteral calculi. No hydronephrosis or hydroureter. Stomach and bowel: No obstruction or ileus. No evidence for diverticulitis. PELVIS: Appendix: No findings to suggest acute appendicitis. Bladder: Unremarkable. No stones. Reproductive: Unremarkable as visualized. ABDOMEN and PELVIS: Intraperitoneal space: No free air. No free fluid. Bones/joints: No acute fracture. Degenerative changes of the spine. Soft tissues: Unremarkable. Vasculature: Unremarkable. No abdominal aortic aneurysm. Lymph nodes: Unremarkable. No enlarged lymph nodes. IMPRESSION: No obstructive uropathy. Degenerative changes of the lumbar spine. Hepatomegaly. Status post cholecystectomy. Small bilateral pleural effusions with compressive atelectasis. Electronically signed by: Júnior Calles M.D. 04/17/24 00:39 AM
[2024-04-17 06:54] LABS: Basophils # (auto) 0.06 K/uL (0.00-0.20); Basophils % (auto) 0.6 %; Eosinophils # (auto) 0.25 K/uL (0.00-0.50); Eosinophils % (auto) 2.5 %; Hematocrit (blood only) 34.7 % (42.0-52.0); Hemoglobin 11.5 g/dl (14.0-18.0); Immature Granulocytes # (auto) 0.04 K/uL (0.01-0.20); Immature Granulocytes % (auto) 0.4 %; Lymphocytes # (auto) 1.44 K/uL (1.20-3.40); Lymphocytes % (auto) 14.2 %; Mean Corpuscular Hemoglobin 28.3 pg (25.0-34.0); Mean Corpuscular Hgb Conc 33.1 g/dL (32.0-36.0); Mean Corpuscular Volume 85.3 fL (80.0-100.0); Mean Platelet Volume 10.4 fL (9.4-12.4); Monocytes # (auto) 0.56 K/uL (0.11-0.59); Monocytes % (auto) 5.5 %; Neutrophils # (auto) 7.79 K/uL (1.40-6.50); Neutrophils % (auto) 76.8 %; Platelet Count 328 K/uL (130-400); RDW Coefficient of Variation 14.4 % (11.5-14.5); RDW Standard Deviation 44.8 fL (36.4-46.3); Red Blood Count 4.07 M/uL (4.70-6.10); White Blood Count 10.14 K/ul (4.8-10.8)
--- NOTE | 2024-04-17 07:02 | Hospitalist Progress Note ---
Date of Service April 17, 2024 Assessment & Plan (1) Acute heart failure with preserved ejection fraction: Plan Mr Marroquin is a 58 year old gentleman with history of HTN and HLD admitted for new onset heart failure and lyme disease. # Heart Failure, New #Acute HFpEF Patient presents with new symptoms of heart failure and evidence of volume overload. Suspect secondary to lyme v dietary Admission weight 131.7kg - BMP, Mg, CBC, troponin, - BNP 337 - CXR cardiomegaly and - EKG reviewed, qtc 450, NSR - Lipid panel ordered - TSH 1.351, UA w/o infection, Lyme + - Formal TTE: EF 60-65%, no wall motion abnormalities - Monitor on telemetry - Strict I/O, daily standing weights -s/p IV lasix in ED - Goal net negative: 1L~ - GDMT: *BetaB: started on metoprolol tartrate 12.5 bid *RAAS: c/w home lisinopril - Na-restricted diet (<3 grams per day), 2L fluid restriction - Replete K>4, Mg>2 continue IV lasix 40mg daily Plan for overnight pulse oximetry #Lyme no known bites, but engages in frequent outdoor activities (fishing) Continue doxycycline #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% SSI #HLD lipid panel ordered continue statin DVT lovenox PCU Admission and Anticipated Discharge Date Admission Date: April 16, 2024 Subjective NAEO reports subjective improvement in symptoms Notes SOB ongoing for weeks, progressively worse Physical Exam Constitutional: WD/WN, vitals as above Respiratory: normal respiratory effort, lungs clear to auscultation Cardiovascular: RRR, no murmur, no edema Gastrointestinal (Abdomen): normal bowel sounds, soft, nontender, no hepatosplenomegaly Results & Data Results & Data Vital Signs (Past 12 Hours) Vital Signs Temp Pulse Pulse Resp BP Pulse Ox O2 Del Method 04/17/24 03:23 36.4 C L 67 18 102/55 L 90 Room Air 04/16/24 22:56 76 04/16/24 22:55 36.9 C 76 18 144/72 H 95 Room Air 04/16/24 22:50 Room Air 04/16/24 21:00 69 24 110/59 L 92 Room Air 04/16/24 19:00 66 20 110/71 94 Room Air Laboratory Results Short CBC 04/16/24 04/17/24 Range/Units 17:25 06:07 WBC 10.80 10.14 (4.8-10.8) K/ul Hgb 12.2 L 11.5 L (14.0-18.0) g/dl Hct 37.0 L 34.7 L (42.0-52.0) % Plt Count 342 328 (130-400) K/uL BMP 04/16/24 17:25 Sodium 136 Potassium 4.2 Chloride 105 Carbon Dioxide 24 BUN 20 Creatinine 0.85 Glucose 119 H Calcium 9.1 Liver Function 04/16/24 Range/Units 17:25 Total Bilirubin 0.9 (0.2-1.0) mg/dl AST 33 (13-39) U/L ALT 99 H (7-52) U/L Alkaline Phosphatase 214 H (34-104) U/L Albumin 3.5 (3.4-5.0) gm/dl Urine 04/16/24 Range/Units 17:39 Urine Color Dark Yellow Urine Appearance Clear (Clear) Urine pH 5.5 (4.5-7.5) Ur Specific [place] 1.030 (1.000-1.030) Urine Protein 1+ H (Negative) Urine Glucose (UA) Negative (Negative) Diagnostic Findings ECHO reviewed: EF 60-65%, no wall motion abnormalities Medications Administered Home Medications Medication Instructions Recorded Confirmed Last Taken cholecalciferol (vitamin D3) 25 25 mcg PO QAM 04/16/24 04/16/24 04/16/24 mcg (1,000 unit) tablet (Vitamin D3) furosemide 20 mg tablet 20 mg PO QAM 04/16/24 04/16/24 04/16/24 glucosamine-chondroitin 500 mg-400 1 tab PO QAM 04/16/24 04/16/24 04/16/24 mg tablet lisinopril 10 mg tablet 10 mg PO QAM 04/16/24 04/16/24 04/16/24 otmnrhrc-fd-lntqq 300 mcg-K 60 1 tab PO QAM 04/16/24 04/16/24 04/16/24 mcg-lycop 600 mcg-lutein 300 mcg tablet (Centrum Silver Ultra Men's) omeprazole 20 mg capsule,delayed 20 mg PO QAM 04/16/24 04/16/24 04/16/24 release potassium chloride 10 mEq 10 meq PO QAM 04/16/24 04/16/24 04/16/24 capsule,extended release semaglutide 0.25 mg or 0.5 mg (2 0.5 mg subcut WK 04/16/24 04/16/24 04/16/24 mg/3 mL) subcutaneous pen injector (Ozempic) sildenafil 100 mg tablet 100 mg PO UD PRN Erectile 04/16/24 04/16/24 Unknown Dysfunction simvastatin 10 mg tablet 10 mg PO QAM 04/16/24 04/16/24 04/16/24 vit C 30 mg-s.resendiz 250 mg-celery 1 cap PO QAM 04/16/24 04/16/24 04/16/24 seed 75 mg-grape seed extrt capsule (Tart Resendiz) Active Medications Generic Name Dose Route Start Last Admin Trade Name Freq PRN Reason Stop Dose Admin Insulin Aspart 0 units 04/16/24 22:51 04/16/24 23:12 Insulin Aspart Per Unit Charge SC 05/16/24 22:50 Not Given ACHS FARHAN Metoprolol Tartrate 12.5 mg 04/16/24 21:00 04/16/24 23:40 Metoprolol Tartrate 25 Mg Tab PO 05/16/24 20:59 12.5 mg BID FARHAN Administration
[2024-04-17 07:15] LABS: BUN Creatinine Ratio 23.8 (10-20); C Reactive Protein 17.43 mg/dl (0-0.5); Calcium 8.5 mg/dl (8.6-10.3); Creatinine Clr Calc Pharmacy 125.7 ml/min; Est GFR (African American) 111.9 ml/min; Est GFR (Non-African American) 96.5 ml/min; Potassium 3.9 mmol/L (3.5-5.1)
[2024-04-17 07:35] LABS: Folate (Folic Acid),Ser orPlas > 22.30 ng/ml (>5.38)
[2024-04-17 07:36] LABS: Vitamin B12 639 pg/ml (180-914)
[2024-04-17 07:37] LABS: Ferritin 352.9 ng/ml (8-388)
[2024-04-17] MEDS: DOXYCYCLINE HYCLATE 100 MG CAP PO SCH (08:36)
[2024-04-17] MEDS: lisinopril 10 MG TAB PO SCH (08:36)
[2024-04-17] MEDS: SIMVASTATIN 10 MG TAB PO SCH (08:39)
[2024-04-17] MEDS: POTASSIUM CHLORIDE CRTAB 20 MEQ TABCR PO SCH (08:39)
[2024-04-17] MEDS: PANTOprazole 40 MG TAB PO SCH (08:39)
[2024-04-17] MEDS: CEROVITE ADV FORMULA TAB PO SCH (08:39)
[2024-04-17] MEDS: FUROSEMIDE 40 MG/4 ML VIAL IV ONE (08:40)
[2024-04-17] MEDS: LANTUS PER UNIT CHARGE SQ SCH (08:56)
[2024-04-17] MEDS ORDERED: LIDOCAINE 5% 1 PATCH TD STA (08:59)
[2024-04-17] MEDS: FUROSEMIDE 40 MG/4 ML VIAL IV SCH (09:03)
[2024-04-17] MEDS: LIDOCAINE 5% 1 PATCH TD STA (09:57)
[2024-04-17] MEDS: CYCLOBENZAPRINE HCL 10 MG TAB PO STA (09:57)
--- NOTE | 2024-04-17 09:59 | XCELERA ---
[id number]
--- NOTE | 2024-04-17 11:01 | Electrocardiogram Report ---
Test Reason : Blood Pressure : / mmHG Vent. Rate : 069 BPM Atrial Rate : 069 BPM P-R Int : 178 ms QRS Dur : 084 ms QT Int : 420 ms P-R-T Axes : 055 021 069 degrees QTc Int : 450 ms Normal sinus rhythm Normal ECG When compared with ECG of 09-MAR-2013 11:38, No significant change was found Confirmed by Nagi Valle ([id number]) on 04/17/2024 11:01:03 AM Referred By: REFERRED SELF Confirmed By:Nagi Valle
--- NOTE | 2024-04-17 15:14 | Cardiology Consultation ---
Date of Consultation April 17, 2024 Assessment & Plan (1) Acute on chronic diastolic CHF (congestive heart failure): -suspect this episode may be secondary to dietary indiscretion with salt. -agree with intravenous diuretics. -discussed salt restricted diet. -discussed daily weights and sliding-scale diuretics. -consider CHF clinic. (2) Hypertension: -adequate control on current regimen. (3) LVH (left ventricular hypertrophy): -mild in degree on current echocardiogram. History of Present Illness Attending Physician: Bernadette Swan MD History of Present Illness Mr. Marroquin is a 58-year-old male admitted yesterday in congestive heart failure. This consultation was ordered to assist in his cardiac management. Of note, the patient would like to follow-up with Dr. Greenfield. The patient was in his usual state of health until approximately 1-2 weeks prior to presentation. He began to note progressive exertional dyspnea and fatigue. He also experienced several episodes of PND. At no time did experience exertional chest pain. He further denies syncope, presyncope, palpitations, lower extremity edema, and claudication. On presentation emergency room, the patient is found to be in mild congestive heart failure. He has responded well to intravenous diuretics. Although he does not add salt to his food, he does eat out at fast food restaurants frequently. We have discussed importance of a salt restricted diet. We have also discussed the concept of daily weights and sliding-scale diuretics. Past medical and surgical history 1. Acute on chronic diastolic CHF-March 2024 2. Hypertension 3. Mild left ventricle hypertrophy 4. Vyxr-iw-qqqeudvy mitral regurgitation 5. Hypercholesterolemia 6. Diabetes mellitus 7. GERD Social history No tobacco alcohol Family history No early coronary artery disease Review of systems A 10 point review of systems was undertaken and negative except that described above. Allergies Allergy/AdvReac Type Severity Reaction Status Date / Time morphine AdvReac Mild ITCHY NOSE Verified 04/16/24 20:05 Home Medications Medication Instructions Recorded Confirmed Type cholecalciferol (vitamin D3) 25 25 mcg PO QAM 04/16/24 04/16/24 History mcg (1,000 unit) tablet (Vitamin D3) furosemide 20 mg tablet 20 mg PO QAM 04/16/24 04/16/24 History glucosamine-chondroitin 500 mg-400 1 tab PO QAM 04/16/24 04/16/24 History mg tablet lisinopril 10 mg tablet 10 mg PO QAM 04/16/24 04/16/24 History lztzanwj-cr-xrswq 300 mcg-K 60 1 tab PO QAM 04/16/24 04/16/24 History mcg-lycop 600 mcg-lutein 300 mcg tablet (Centrum Silver Ultra Men's) omeprazole 20 mg capsule,delayed 20 mg PO QAM 04/16/24 04/16/24 History release potassium chloride 10 mEq 10 meq PO QAM 04/16/24 04/16/24 History capsule,extended release semaglutide 0.25 mg or 0.5 mg (2 0.5 mg subcut WK 04/16/24 04/16/24 History mg/3 mL) subcutaneous pen injector (Ozempic) sildenafil 100 mg tablet 100 mg PO UD PRN Erectile 04/16/24 04/16/24 History Dysfunction simvastatin 10 mg tablet 10 mg PO QAM 04/16/24 04/16/24 History vit C 30 mg-s.resendiz 250 mg-celery 1 cap PO QAM 04/16/24 04/16/24 History seed 75 mg-grape seed extrt capsule (Tart Resendiz) Patient History Medical History (Updated 04/17/24 @ 15:12 by Nagi Valle MD) GERD (gastroesophageal reflux disease) Hyperlipidemia Surgical History No significant past surgical history Social History (Updated 04/13/19 @ 20:25 by Ramon Goel) Smoking Status: Never smoker Hx Alcohol Use: No Hx Substance Use: No Preferred Language: Kinyarwanda Communication Ability: Effective Web Content Writer Required: No Beliefs That Will Affect Care: None marital status: Current Living Situation: Alone current occupational status: employed Feels Safe at Home: Yes Safety Concerns: Feels Safe At This Time Assistive Devices: None Physical Exam Physical Exam: In general this is an obese white male in no acute distress. HEENT exam is negative. Neck is supple with full carotid upstrokes. There are no carotid bruits. Jugular venous pressure is flat at 90. There is no thyromegaly. Cardiovascular exam reveals a regular rhythm with a normal S1 and S2. No S3, S4, or murmurs are noted. Lungs are clear without rales, rhonchi, or wheezes. Abdomen is soft and nontender without bruits. Extremities reveal intact radial artery and posterior tibial pulses bilaterally. There is no peripheral edema. Results & Data Vital Signs (Past 12 Hours) Vital Signs Temp Pulse Pulse Resp BP Pulse Ox O2 Del Method 04/17/24 13:01 63 04/17/24 10:49 36.5 C 62 18 108/61 94 Room Air 04/17/24 08:00 63 04/17/24 08:00 Nasal Cannula 04/17/24 07:45 36.6 C 60 18 103/60 96 Nasal Cannula 04/17/24 03:23 36.4 C L 67 18 102/55 L 90 Room Air O2 Flow Rate 04/17/24 13:01 04/17/24 10:49 04/17/24 08:00 04/17/24 08:00 2 04/17/24 07:45 2 04/17/24 03:23 Laboratory Results High sensitivity troponin is normal at 5.9. BNP is elevated at 337 Diagnostic Findings Echocardiogram notes normal left ventricular systolic function with ejection fraction of 60-65%. There was mild LVH. There is wyow-cf-jumsjrta mitral re gurgitation. EKG notes normal sinus rhythm without abnormalities. Chest x-ray notes cardiomegaly and mild interstitial edema. PG Care Time/CCT Total # of Minutes Spent Total Time Spent with Patient: Total time spent is greater than 50% in coordination of care (as documented) at patient's floor/unit and/or counseling patient: Coding Level of Care Code 22027 IN/OBS CONSULT LVL 4,60M Diagnoses Acute on chronic diastolic CHF (congestive heart failure) I50.33 Hypertension I10 LVH (left ventricular hypertrophy) I51.7
[2024-04-17] MEDS: ENOXAPARIN INJ 40 MG/0.4 ML SYR SQ SCH (17:44)
[2024-04-18 07:59] LABS: BUN Creatinine Ratio 24.7 (10-20); Calcium 8.4 mg/dl (8.6-10.3); Chol HDL Ratio 3.9 (0-5); Creatinine Clr Calc Pharmacy 123.8 ml/min; Est GFR (African American) 111.3 ml/min
[2024-04-18] MEDS: LIDOCAINE 5% 1 PATCH TD SCH (08:42)
--- NOTE | 2024-04-18 12:43 | Hospitalist Progress Note ---
Date of Service April 18, 2024 Assessment & Plan (1) Acute heart failure with preserved ejection fraction: Plan Mr Marroquin is a 58 year old gentleman with history of HTN and HLD admitted for new onset heart failure and lyme disease. # Heart Failure, New #Acute HFpEF Patient presents with new symptoms of heart failure and evidence of volume overload. Suspect secondary to lyme v dietary Admission weight 131.7kg - BMP, Mg, CBC, troponin, - BNP 337 - CXR cardiomegaly and - EKG reviewed, qtc 450, NSR - Lipid panel ordered - TSH 1.351, UA w/o infection, Lyme + - Formal TTE: EF 60-65%, no wall motion abnormalities - Monitor on telemetry - Strict I/O, daily standing weights -s/p IV lasix in ED - Goal net negative: 1L~ - GDMT: *BetaB: started on metoprolol tartrate 12.5 bid *RAAS: c/w home lisinopril - Na-restricted diet (<3 grams per day), 2L fluid restriction - Replete K>4, Mg>2 continue IV lasix 40mg daily #Nocturnal hypoxia #YUE unable to tolerate CPAP, plan for 2L qhs upon d/c #Lyme no known bites, but engages in frequent outdoor activities (fishing) Continue doxycycline #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% SSI #HLD lipid panel ordered continue statin DVT lovenox PCU Admission and Anticipated Discharge Date Admission Date: April 16, 2024 Subjective NAEO Reports still some SOB, but overall reports improvement No events on telemetry Physical Exam Constitutional: WD/WN, vitals as above Cardiovascular: RRR, no murmur, no edema Gastrointestinal (Abdomen): normal bowel sounds, soft, nontender, no hepatosplenomegaly Skin: no rashes, warm and dry Results & Data Results & Data Vital Signs (Past 12 Hours) Vital Signs Temp Pulse Pulse Resp BP Pulse Ox Pulse Ox 04/18/24 10:52 36.6 C 64 21 120/64 93 04/18/24 07:13 36.4 C L 59 L 20 130/77 96 04/18/24 04:09 65 89 L 04/18/24 03:45 36.4 C L 60 22 121/69 94 O2 Del Method O2 Del Method O2 Flow Rate O2 Flow Rate 04/18/24 10:52 Room Air 04/18/24 07:13 Room Air 04/18/24 04:09 Nasal Cannula 2 04/18/24 03:45 Nasal Cannula 2 Laboratory Results [facility] 04/18/24 07:11 Sodium 135 L Potassium 4.0 Chloride 103 Carbon Dioxide 28 BUN 21 Creatinine 0.85 Glucose 138 H Calcium 8.4 L Medications Administered Home Medications Medication Instructions Recorded Confirmed Last Taken cholecalciferol (vitamin D3) 25 25 mcg PO QAM 04/16/24 04/16/24 04/16/24 mcg (1,000 unit) tablet (Vitamin D3) furosemide 20 mg tablet 20 mg PO QAM 04/16/24 04/16/24 04/16/24 glucosamine-chondroitin 500 mg-400 1 tab PO QAM 04/16/24 04/16/24 04/16/24 mg tablet lisinopril 10 mg tablet 10 mg PO QAM 04/16/24 04/16/24 04/16/24 [id number]-[id number] 300 mcg-K 60 1 tab PO QAM 04/16/24 04/16/24 04/16/24 mcg-lycop 600 mcg-lutein 300 mcg tablet (Centrum Silver Ultra Men's) omeprazole 20 mg capsule,delayed 20 mg PO QAM 04/16/24 04/16/24 04/16/24 release potassium chloride 10 mEq 10 meq PO QAM 04/16/24 04/16/24 04/16/24 capsule,extended release semaglutide 0.25 mg or 0.5 mg (2 0.5 mg subcut WK 04/16/24 04/16/24 04/16/24 mg/3 mL) subcutaneous pen injector (Ozempic) sildenafil 100 mg tablet 100 mg PO UD PRN Erectile 04/16/24 04/16/24 Unknown Dysfunction simvastatin 10 mg tablet 10 mg PO QAM 04/16/24 04/16/24 04/16/24 vit C 30 mg-s.resendiz 250 mg-celery 1 cap PO QAM 04/16/24 04/16/24 04/16/24 seed 75 mg-grape seed extrt capsule (Tart Resendiz) Active Medications Generic Name Dose Route Start Last Admin Trade Name Freq PRN Reason Stop Dose Admin Doxycycline Hyclate 100 mg 04/17/24 09:00 04/18/24 08:42 Doxycycline Hyclate 100 Mg Cap PO 04/27/24 08:59 100 mg BID FARHAN Administration Enoxaparin Sodium 40 mg 04/17/24 17:30 04/18/24 08:42 Enoxaparin Inj 40 Mg/0.4 Ml Syr SQ 05/17/24 17:29 40 mg QAM FARHAN Administration Furosemide 40 mg 04/17/24 09:00 04/18/24 08:42 Furosemide 40 Mg/4 Ml Vial IV 05/17/24 08:59 40 mg DAILY FARHAN Administration Insulin Aspart 0 units 04/16/24 22:51 04/18/24 12:21 Insulin Aspart Per Unit Charge SC 05/16/24 22:50 6 units ACHS FARHAN Administration Insulin Glargine 5 units 04/17/24 09:00 04/18/24 08:42 Lantus Per Unit Charge SQ 05/17/24 08:59 5 units DAILY FARHAN Administration Lidocaine 1 patch 04/18/24 09:00 04/18/24 08:42 Lidocaine 5% 1 Patch TD 05/18/24 08:59 1 patch QAM FARHAN Administration Lisinopril 10 mg 04/17/24 09:00 04/18/24 08:42 Lisinopril 10 Mg Tab PO 05/17/24 08:59 10 mg QAM FARHAN Administration Metoprolol Tartrate 12.5 mg 04/16/24 21:00 04/18/24 08:21 Metoprolol Tartrate 25 Mg Tab PO 05/16/24 20:59 Not Given BID FARHAN Miscellaneous 1 each 04/17/24 21:00 04/17/24 22:29 Remove Lidoderm Patch N/A 05/17/24 20:59 1 each DAILY@2100 FARHAN Administration Multivitamins/Minerals 1 tab 04/17/24 09:00 04/18/24 08:41 Cerovite Adv Formula Tab PO 05/17/24 08:59 1 tab QAM FARHAN Administration Pantoprazole Sodium 40 mg 04/17/24 09:00 04/18/24 08:42 Pantoprazole 40 Mg Tab PO 05/17/24 08:59 40 mg QAM FARHAN Administration Potassium Chloride 20 meq 04/17/24 09:00 04/18/24 08:42 Potassium Chloride Crtab 20 Meq Tabcr PO 05/17/24 08:59 20 meq QAM FARHAN Administration Simvastatin 10 mg 04/17/24 09:00 04/18/24 08:43 Simvastatin 10 Mg Tab PO 05/17/24 08:59 10 mg QAM FARHAN Administration
[2024-04-18] MEDS: oxyCODONE HCL IR 5 MG TAB (IMMEDIATE RELEASE) PO PRN (15:35)
[2024-04-19 08:26] LABS: Alanine Aminotransferase 54 U/L (7-52); Albumin Globulin Ratio 0.8 (0.9-2); Albumin Level 3.3 gm/dl (3.4-5.0); Alkaline Phosphatase 155 U/L (34-104); Anion Gap 3 (3-11); BUN Creatinine Ratio 23.8 (10-20); Bilirubin,Total 0.4 mg/dl (0.2-1.0); Blood Urea Nitrogen 20 mg/dl (6-23); Calcium 8.7 mg/dl (8.6-10.3); Carbon Dioxide 30 mmol/L (21-32); Chloride 101 mmol/L (98-107); Creatinine Clr Calc Pharmacy 125.5 ml/min; Est GFR (African American) 111.9 ml/min; Est GFR (Non-African American) 96.5 ml/min; Globulin 3.9 gm/dl (2.5-4.0); Glucose 144 mg/dl (70-99(Fasting)); Sodium 134 mmol/L (136-145); Total Protein 7.2 gm/dl (6.0-8.3)
[2024-04-19 09:39] LABS: Potassium 4.2 mmol/L (3.5-5.1)
--- NOTE | 2024-04-19 13:25 | Discharge Summary ---
Discharge Summary Date of Service April 19, 2024 Principal Dx & Hospital Course #1 = Principal Diagnosis (1) Acute heart failure with preserved ejection fraction: Plan Mr Marroquin is a 58 year old gentleman with history of HTN and HLD admitted for new onset heart failure and lyme disease. Patient doing much better after IV diuresis. Denies any SOB/GROVE this morning. Plan for discharge with HF follow up. Transitioned Metoprolol to XL and increased furosemide 40mg daily. Patient states fatigue much improved, therefore discharged on oral antibiotics. # Heart Failure, New #Acute HFpEF Patient presents with new symptoms of heart failure and evidence of volume overload. Suspect secondary to lyme v dietary Admission weight 131.7kg - BMP, Mg, CBC, troponin, - BNP 337 - CXR cardiomegaly and - EKG reviewed, qtc 450, NSR - Lipid panel wnl - TSH 1.351, UA w/o infection, Lyme + - Formal TTE: EF 60-65%, no wall motion abnormalities - Monitor on telemetry - Strict I/O, daily standing weights -s/p IV lasix in ED - Goal net negative: 1L~ - GDMT: *BetaB: started on metoprolol tartrate 12.5 bid *RAAS: c/w home lisinopril - Na-restricted diet (<3 grams per day), 2L fluid restriction - Replete K>4, Mg>2 discontinue IV lasix 40mg daily Increased home furosemide to 40mg daily HF nurse follow up #Nocturnal hypoxia #YUE unable to tolerate CPAP d/c with 2L qhs #Lyme no known bites, but engages in frequent outdoor activities (fishing) Continue doxycycline x10 days #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 Medical history significant for hypertension, hyperlipidemia, DM2 on Ozempic, GERD. 1 week history of shortness of breath mostly on exertion associated with dizziness described as lightheadedness and fatigue. No chest pain. No fluid retention or leg swelling. No recollection of recent tick bites although possible exposure to ticks. Denies abdominal pain, black, bloody stools. Achy back pain 2 weeks ago without recollection of recent trauma. Discomfort relieved by NSAID intake at home. Possible sleep apnea as per patient. Has not gone for sleep studies in the past. Does not think he will be comfortable wearing mask. Patient consulted ER for worsening symptoms. IV Lasix administered at the ER. 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 Admission Exam Per Admitting Provider GENERAL: Comfortable, pleasant, morbidly obese, no respiratory distress SKIN: Pallor, warm HEENT: Pale palpebral conjunctivae, no ptosis, dry buccal mucosa NECK : Supple, short neck, no tenderness CHEST : Decreased breath sounds, no tenderness HEART : RRR, systolic murmur ABDOMEN: Some distention, nontender RECTAL : Intact sphincter, brown stool (FOBT negative) EXTREMITIES : Minimal LE swelling, no LE tenderness, no other conspicuous deformities noted NEUROLOGIC : Coherent, no facial asymmetry, no other gross focality Discharge Exam Constitutional WD/WN, vitals as above Respiratory normal respiratory effort, lungs clear to auscultation Cardiovascular RRR, no murmur, no edema Gastrointestinal (Abdomen) normal bowel sounds, soft, nontender, no hepatosplenomegaly Skin no rashes, warm and dry Updated Medication List Medication Instructions Recorded Confirmed Type cholecalciferol (vitamin D3) 25 25 mcg PO QAM 04/16/24 04/16/24 History mcg (1,000 unit) tablet (Vitamin D3) glucosamine-chondroitin 500 mg-400 1 tab PO QAM 04/16/24 04/16/24 History mg tablet lisinopril 10 mg tablet 10 mg PO QAM 04/16/24 04/16/24 History rvkhywyi-sk-uyvae 300 mcg-K 60 1 tab PO QAM 04/16/24 04/16/24 History mcg-lycop 600 mcg-lutein 300 mcg tablet (Centrum Silver Ultra Men's) omeprazole 20 mg capsule,delayed 20 mg PO QAM 04/16/24 04/16/24 History release potassium chloride 10 mEq 10 meq PO QAM 04/16/24 04/16/24 History capsule,extended release semaglutide 0.25 mg or 0.5 mg (2 0.5 mg subcut WK 04/16/24 04/16/24 History mg/3 mL) subcutaneous pen injector (Ozempic) sildenafil 100 mg tablet 100 mg PO UD PRN Erectile 04/16/24 04/16/24 History Dysfunction simvastatin 10 mg tablet 10 mg PO QAM 04/16/24 04/16/24 History vit C 30 mg-s.resendiz 250 mg-celery 1 cap PO QAM 04/16/24 04/16/24 History seed 75 mg-grape seed extrt capsule (Tart Resendiz) doxycycline hyclate 100 mg capsule 100 mg PO BID #20 caps 04/19/24 Rx furosemide 20 mg tablet 40 mg (2 x 20 mg) PO QAM #60 tabs 04/19/24 Rx metoprolol succinate 25 mg 25 mg PO DAILY #30 tabs 04/19/24 Rx tablet,extended release 24 hr Hospital Stay Data Consultations 04/16/24 19:24 ED Decision to Admit Stat 04/16/24 22:51 Consult Cardiology Routine Diagnostic Imagining Performed 04/16/24 20:53 CT Abd and Pelvis [CT abd pelvis wo con] Stat Pending Results Patient Have Any Pending Studies at Discharge: No Discharge Instructions Given to Patient (Per Discharging Provider) You were admitted for shortness of breath and found to have acute heart failure. You were also noted to have Lyme disease. The following medications were changed: -Please increase furosemide 20mg to 40mg daily -Please start Metoprolol Succinate 25mg daily Given you are unable to tolerate a CPAP mask, you will be sent home with 2L oxygen for night time., Please follow up with Cardiology in 2-4 weeks upon discharge. Please weight your self and review the attached tips on identifying a heart failure flare as well as monitoring your diet Please continue to take doxycycline 100mg two times daily. Your next dose is this evening. Total Time Total Time Spent Total Time Spent (In Minutes): 40
[2024-04-21 00:18] LABS: Babesia microti DNA Not Detected (Not Detected)
[2024-04-21 13:08] LABS: Ehrlichia chaff DNA Bld Negative (Negative)
== END 2024-04-19 16:05 | disposition home or self-care (01) | DRG 291 ==
LOC: ED 16:32 → 2S 20:55 → 2W 04-18 16:01